=== PATIENT | female | born 1945 ===

== ENCOUNTER → 2021-01-06 10:02 | Outpatient (CLI) | payer MEDICARE, BC, SELFPAY ==
[2021-01-06 12:07] LABS: COVID19 -Nasal RAPID Negative (Negative)
== END ==
PROVIDERS: PCP Family Medicine; Visit Provider Physician Assistant
DX: Z20.822 Contact with and (suspected) exposure to COVID-19 (principal); Z01.812 Encounter for preprocedural laboratory examination
CPT/HCPCS: 87635

== ENCOUNTER 2021-01-07 05:59 | Inpatient (IN) | payer MEDICARE, BC, SELFPAY ==
[2020-12-31 09:46] VITALS: BMI 28.3
[2021-01-07] VITALS (16 sets, daily range): BP systolic 101–153; BP diastolic 45–83; PULSE 45–69; RESP 16–20; TEMP 35.8–36.6; O2SAT 90–100; BMI 27.1
[2021-01-07] MEDS: LACTATED RINGERS 1,000 ML 42 ML IV ×2 (07:25→09:33)
[2021-01-07] MEDS: VANCOMYCIN 1,000 MG/200 ML PIGGYBACK 200 MG IV ×2 (07:44→19:07)
--- NOTE | 2021-01-07 07:55 | SUR.PREOP ---
Block start time [0742] . 0744 time out performed. Monitoring initiated and maintained throughout procedure. Oxygen and medications given per anesthesiologist. Patient remained stable throughout procedure, no adverse reactions noted. Block end time [0751. Pt left for OR with DAYLIN Flanagan instable condition.].
[2021-01-07] MEDS: GENTAMICIN 290 MG in SODIUM CHLORIDE 0.9% 100 ML 107.25 ML IV (08:09)
--- NOTE | 2021-01-07 08:31 | SUR.OPER ---
Beach chair with Maquet shoulder positioner. Lower body on padded OR bed. Head in foam padded head cradle, secured with straps. Non-operative arm secured <90 degrees abduction. Pillow under knees. Safety belt at thigh. Cloth tape over blanket over lower legs.
[2021-01-07] MEDS: LIDOCAINE 1% W/EPI 20 ML INJ (08:37)
--- NOTE | 2021-01-07 08:48 | PM.PROC.1 ---
Procedures Date/Time Date of procedure: 01/07/21 Time of procedure: 07:40 General Procedure description: Ultrasound guided interscalene brachial plexus nerve block for post op pain control after left total shoulder arthroplasty by Dr. Tanner. Risk and benefits of procedure discussed with patient. ASA monitoring applied to patient. O2 given via nasal cannula. 2 mg Versed and 50 mcg fentanyl given for procedural sedation. Skin site was prepped with chlorhexidine and allowed to fully dry. Sterile gloves, mask, hat and probe cover were used to maintain sterility. 2% lidocaine and 30ga needle was used to make a small skin wheal at needle insertion site. Under ultrasound guidance, a 21ga 50mm Pajunk needle was directed into the interscalene groove (middle/anterior scalenes) near the brachial plexus. Patient reported no parasthesias. After negative aspiration, 20 mL 0.5% ropivicaine and 10mg dexamethasone were injected around brachial plexus. Patient tolerated procedure well.
--- NOTE | 2021-01-07 10:22 | PM.PREOP ---
Pre-operative Note COVID-19 COVID-19 status: Negative Interval Note History & Physical reviewed/Exam performed by Physician: Yes Changes to H&P: No
--- NOTE | 2021-01-07 10:30 | DI.RAD.S_ITS ---
PROCEDURE: XR SHOULDER LT MIN 2V INDICATIONS: Status post total shoulder arthroplasty TECHNIQUE: 2 is views of the shoulder were acquired. COMPARISON: None. FINDINGS: Bones: Expected postoperative alignment of left shoulder arthroplasty . Hardware appears intact. No acute fracture. IMPRESSION: Expected alignment. Dictated by: Marito Gray M.D. on 01/07/2021 at 11:49 Approved by: Marito Gray M.D. on 01/07/2021 at 11:50
--- NOTE | 2021-01-07 10:31 | PM.OP.1 ---
Operative Date/Time/Diagnoses Date of procedure: 01/07/21 Time of procedure: 08:00 Pre-op diagnosis: Left glenohumeral joint arthritis Post-op diagnosis: same Procedure & Clinicians Procedure: Left total shoulder arthroplasty Same procedure as scheduled: Yes Indications: Left glenohumeral joint arthritis Surgeon: Aly Tanner Mechanical Lead: Chadwick Spencer Anesthesia Type: General and Peripheral nerve block Operative Notes Findings: End-stage arthritic changes to the glenohumeral joint. No sign of any rotator cuff tears. No sign of any high-riding humeral head. Multiple osteophytes to the anterior-inferior aspect of the humeral head and neck. Some loose bodies in the glenohumeral joint. No significant flattening of the humeral head. No significant deformity or excessive wear to the glenoid. Closure Type: primary Specimen(s): none sent Applied: implant(s) (Medium glenoid 6 mm humeral stem, 50 x 19 humeral head) Estimated Blood Loss (mL): 100 Blood products transfused: none Procedure in detail: On date of service, Patient was met in the holding area. The operative site was signed and witnessed by the OR staff. The surgeries once again discussed with the patient and any remaining questions they had were answered fully. Patient was taken back to the operating theater and placed on the operating table in a supine position. Great care was taken to ensure that all bony prominences were properly padded. Patient was then placed into the beach chair position. The head and neck were properly positioned and secured. A timeout was performed verifying patient's name, procedure, and the operative site. The upper extremity was then prepped and draped in the normal sterile fashion. Previously, the bony anatomy and incision were marked out as well as injected with Marcaine with epinephrine. A deltopectoral approach was performed. 10 blade was used to incise the skin and fascial tissue. A deep knife was used to continue sharp dissection until the cephalic vein was visualized. The cephalic vein was dissected free allowing us to expose the deltopectoral interval. This interval was then developed. A Valle elevator was used to free up the deltoid of any scarring both superficially as well as deeply. The vein and the deltoid were taken laterally while the pectoralis was taken medially. This gave us good visualization of the strap muscles. The clavipectoral fascia was removed and the strap muscles were then retracted medially with the pectoralis. This gave us stabilization of the subscapularis. The circumflex vessels were ligated and the subscapularis was sharply excised off the lesser tuberosity and then tagged. Once the subscapularis was released we're able to dislocate the shoulder. Patient had end-stage arthritic changes to the humeral head as well as the glenoid with large osteophytes anterior inferiorly as well as posteriorly. A Ronger was then used to remove the osteophytes. Next, cutting guide was placed and a saw was used to remove the humeral head. Once the head was removed it was templated. A starting awl was then used to find the canal and then the humerus was reamed and broached. Trial stem was placed and a variety of heads were trialed. A protector placed for the osteotomy was then placed and and we turned our attention back to the subscapularis as well as the glenoid. The subscapularis was freed up and a 360? fashion. The degenerative anterior and inferior capsular tissue was removed. This was followed by removing the degenerative labral tissue from around the glenoid as well as the biceps insertion. This gave us good visualization of the glenoid. Glenoid trials were used until we found the appropriate fit and curvature. Next the center hole was drilled followed by reaming of the glenoid. The wound was copiously irrigated after reaming. Next the pegs were drilled and a trial glenoid was impacted into place. Once we were satisfied with the preparation of the glenoid, the final component was cemented into place. This was followed by impaction. We Return to our attention back to the humerus. The protector plate was removed and heads were trialed once again and so we found the appropriate fit. The trials were removed and bone tunnels were made into the humeral neck. #2 FiberWire were passed through the bone tunnels for eventual subscapularis repair. The final stem and head were impacted into place and the shoulder was reduced. It was taken through range of motion and was felt to be stable in both posterior translation as well as external and internal rotation with abduction. The subscapularis was repaired back to the lesser tuberosity through the bone tunnels. This was then reinforced with soft tissue repair. Part of the rotator interval was then closed. A drain was placed and the rest of the wound was closed in a layered fashion. The shoulder was then cleaned dried and dressed and the patient was taken to the PACU in stable condition. Patient will follow our postoperative protocol for total shoulder arthroplasty. Complications: none Post-operative Condition: stable Disposition: Acute Care Plan for aftercare: Patient will follow our postoperative protocol for total shoulder arthroplasty
[2021-01-07] MEDS: LACTATED RINGERS 1,000 ML 125 ML IV ×2 (11:48→22:02)
[2021-01-07] MEDS: BENZOCAINE/MENTHOL 1 LOZ PKT 1 EACH PO (13:14)
--- NOTE | 2021-01-07 15:30 | PT.IIE ---
Current Diagnoses Primary osteoarthritis, left shoulder (01/07/21) Impingement syndrome of unspecified shoulder (01/07/21) Surgery Performed Operation Date: 01/07/21 07:45 Actual Procedures p Total Shoulder Arthroplasty(Left) - Aly Tanner MD Surgical History (Last Updated 12/31/20 @ 10:15 by Gaby Campbell RN) History of hysterectomy History of surgery (2005) History of total right hip arthroplasty (07/2005) Hx of foot surgery (~1999) Hx of repair of left rotator cuff (2009) Hx of tonsillectomy Medical History (Last Updated 12/31/20 @ 10:15 by Gaby Campbell RN) C. difficile enteritis (05/2014) Depression Glaucoma History of revision of total replacement of right hip joint (2014) HLD (hyperlipidemia) HTN (hypertension) Lactose intolerance Osteoarthritis Uterine cancer (~1977) Physical Therapy Inpatient Evaluation/Re-Eval M1 PT/OT-IP Prior Functional Status Start: 01/07/21 16:35 Freq: NEEDED Status: Active Protocol: Document 01/07/21 15:30 AB (Rec: 01/07/21 16:52 AB [id number]) Medical Review Prior Functional Status Medical History Reviewed Yes Communication able to make needs known Mobility and Gait pt stated that she is independent with all mobilities and ambualtion without AD Social History Household Members spouse Living Arrangements House Number of Floors (Floors) One Floor Number of Stairs To Enter/Railing? 3 steps R rail ascending Home Environment High Toilet,Walk in Shower Home Equipment Straight Cane,Shower Seat with Backrest,Hand Held Shower, Grab Bars Near Toilet,Grab Bars In Shower Additional Social History Comment pt's son who lives ~ 10 min away from pt will be assisting pt most of the time and spouse will assist as needed pt has an adjustable bed and usually has HOB up ~ 20 deg M2 PT-IP Current Condition Start: 01/07/21 16:35 Freq: NEEDED Status: Active Protocol: Document 01/07/21 15:30 AB (Rec: 01/07/21 16:52 AB [id number]) Physical Therapy Current Condition Current Condition Evaluation Date 01/07/21 Treatment Diagnosis s/p L TSA; difficulty in walking Onset Date 01/07/21 Precautions Shoulder Precautions Sling,PROM,Internal Rotation to Body,No External Rotation, No Abduction,Forward Flexion to 90 degrees,Pendulums Weight Bearing Status Weight Bearing Status Non-Weight Bearing Allowed Weight Bearing Amount (enter % LUE NWB or #) (%) M3 PT-IP Subjective Start: 01/07/21 16:35 Freq: NEEDED Status: Active Protocol: Document 01/07/21 15:30 AB (Rec: 01/07/21 16:52 AB [email or web address]) Subjective Physical Therapy Visit Type Type Initial Evaluation Visit Start Time 15:30 Visit Stop Time 16:25 Total Visit Minutes [address] GUARD Visits 0 Physical Therapy Visit Comments Patient Comments agreeable to do PT; son in room with pt Therapy Pain Assessment Pain Present Pain Present Denied Pain M4 PT-IP Mobility and Gait Start: 01/07/21 16:35 Freq: NEEDED Status: Active Protocol: Document 01/07/21 15:30 AB (Rec: 01/07/21 16:52 AB [email or web address]) PT-Bed Mobility Assessment Supine to Sit Supine to Sit Standby Assistance,Head of Bed Elevated Sit to Supine Sit to Supine Standby Assistance,Head of Bed Elevated PT-Transfer Assessment Sit to and From Stand Sit to and from Stand Minimal Assistance,1 Person Assistance,Use of Upper Extremities Equipment Transfer Assistive Device None,Gait Belt Orthotic/Prosthetic Devices or Brace: Yes Transfers Transfer Destination Toilet Transfer Technique ambulated without AD Transfer Ability Level of Assist Minimal Assistance,1 Person Assistance,Use of Upper Extremities Comments Mobility Comments educated pt and son regarding shoulder precautions. pt completed supine to sit HOB elevated SBA. pt was able to sit on EOB SBA. pt can be impulsive and tends to move/ shrug shoulder. assisted pt with sling adjustment. educated on elbow/wrist/hand exercises. caregiver training conducted with son for sling management. son was able to edil sling on pt after education provided. pt completed sit to stand min A and ambulated in room ~ 10 ft min A without AD. presents with unsteady antalgic gait. pt ambulated back to bed but requested to use the toilet. ambulated to the toilet without AD min A and cues. able to maintain standing CGA while managing brief. ambulated back to bed CGA to min A and cues. completed sit to supine SBA. positioned pt in bed. call light and table placed within reach. Gait Assessment Gait Gait Assistance Required: Contact Guard Assist,Minimum Assistance,1 Person Assist Distance (Feet) 10 Able to Maintain Weight Bearing Status Yes During Gait Assistive Devices Assistive Device None,Gait Belt Orthotic/Prosthetic Devices or Brace: Yes Gait Deviations General Gait Pattern Antalgic,Decreased Stride Length,Decreased Feet Clearance,Step-to Gait Factors Limiting Gait Function Factors Limiting Gait Function Decreased Activity Tolerance, Decreased Sensation,Decreased Strength,Limited Range of Motion,Poor Balance,Poor Safety Awareness PT-Balance Assessment Sitting Balance and Reactions Static Sitting Balance Ability Good Dynamic Sitting Balance Ability Good Standing Balance and Reactions Static Standing Balance Ability Fair Dynamic Standing Balance Ability Fair Device Used without AD M5 PT-IP Objective Assessments Start: 01/07/21 16:35 Freq: NEEDED Status: Active Protocol: Document 01/07/21 15:30 AB (Rec: 01/07/21 16:52 AB [email or web address]) Orientation Orientation/Cognition Level of Alertness Alert Orientation Name,Place,Situation Language Function Ability No Deficits Noted Safety Awareness Decreased Safety Awareness Memory Description No Deficits Noted Gross Range of Motion Lower Extremity ROM Assessment Within Functional Limits Strength Lower Extremity Strength Hip 3+/5 Knee 4-/5 Sensation Assessment Sensation Gross Sensation Left UE Impaired Light Touch Impaired Proprioception (Position) Impaired Sensation Description Numbness Comments Sensation Comments numbness on LUE and does not have any motor control Muscle Tone Muscle Tone WNL No Muscle Tone Location Left Upper Extremity Type of Tone Hypotonicity Severity of Tone Severe M6 PT-IP Treatment Start: 01/07/21 16:35 Freq: NEEDED Status: Active Protocol: Document 01/07/21 15:30 AB (Rec: 01/07/21 16:52 AB [email or web address]) Physical Therapy Treatment Education Education Provided Precautions,Weight Bearing Status,Post-Op Packet,Safety Brace Education [place],Caregiver Other Treatments Other Treatment Performed caregiver training conducted for sling management M7 PT-IP Assessment and Plan Start: 01/07/21 16:35 Freq: NEEDED Status: Active Protocol: Document 01/07/21 15:30 AB (Rec: 01/07/21 16:52 AB [email or web address]) PT Summary Assessment and Plan Potential Rehabilitation Potential Good Status of Condition at Evaluation Evolving Summary Impairments Pain,ROM,Strength,Balance, Coordination,Sensation,Tone, Cognition,Bed Mobility, Transfers,Gait,Activity Tolerance Assessment Summary pt s/p L TSA POD 0. pt still have LUE numbness and has no motor control. pt requiring min A for ambulation without AD. stated that she feels stiff. will assess mobility again tomorrow and if needed, will conduct ambulation training using SPC for steadiness and safety. caregiver training conducted with son for sling management, LUE exercises/ precautions. further caregiver training set up for tomorrow at 9 am. will continue to assess. Goals Bed Mobility Goal Standby Assistance Transfer Goal Standby Assistance Gait Goal Standby Assistance Gait Distance 200 Other Goals up/down 3 steps R rail SBA Days to Meet Goals 3 Frequency of Treatment Frequency Of Treatment Twice a Day Treatment Plan Physical Therapy Treatment Plan Bed Mobility Training,Transfer Training,Gait Training, Therapeutic Exercise,Balance Retraining,Post Op Education, Discharge Planning,Hot or Cold Pack,Neuromuscular Re-ed, Coordination Retraining,Manual Therapy Precautions Shoulder Precautions Sling,PROM,Internal Rotation to Body,No External Rotation, No Abduction,Forward Flexion to 90 degrees,Pendulums Recommendations To Nursing Amount of Assist Needed 1 Person Assist Discharge Recommendations PT Discharge Recommendations Home with Assistance, Outpatient PT Transportation Needs at Discharge Private Vehicle
[2021-01-07] MEDS: LATANOPROST 0.005% OPHTH 2.5 ML 1 DROPS EYE-BOTH (20:41)
[2021-01-07] MEDS: DOCUSATE 100 MG CAPSULE PO (20:44)
[2021-01-07] MEDS: MAGNESIUM HYDROXIDE 30 ML UDC PO (20:44)
[2021-01-07] MEDS: CITALOPRAM 10 MG TABLET 20 MG PO (20:44)
[2021-01-07] MEDS: MELATONIN 3 MG TABLET 9 MG PO (23:48)
[2021-01-07] MEDS: ACETAMINOPHEN 325 MG TABLET 975 MG PO (23:49)
[2021-01-08] VITALS: BP 145/76; PULSE 73; RESP 18; TEMP 36.3; O2SAT 99
[2021-01-08] MEDS: HYDROCODONE/ACET 5/325 TABLET 2 TAB PO (04:18)
[2021-01-08 04:42] VITALS: BP 153/56; PULSE 70; RESP 16; TEMP 36.7; O2SAT 99
[2021-01-08] MEDS: HYDROMORPHONE 0.5 MG INJ 0.2 MG IV ×2 (06:46→11:26)
[2021-01-08 07:18] LABS: Hematocrit 36.6 % (36-46); Hemoglobin 11.9 g/dL (12.0-16.0); Mean Corpuscular HGB Conc 32.4 % (30-36); Mean Corpuscular Hemoglobin 29.5 PG (26-34); Platelet Count 184 X10^3/uL (150-400); Red Blood Cell Count 4.02 X10^6/uL (4.0-5.2); Red Cell Distribution Width 13.4 % (11.6-14.8); White Blood Cell Count 12.3 X10^3/uL (4.5-11.0)
--- NOTE | 2021-01-08 07:29 | PM.PNPO.1 ---
Subjective Subjective Date Patient Seen: 01/08/21 Time Patient Seen: 07:29 Interval history: Patient states she is doing well overall and is in mild discomfort at rest. At this time the patient denies fever, chills, nausea, chest pain, shortness of breath, or urinary retention. Patient notes that she did not get great sleep last night due to her pain. She explains however that she is looking forward to working with physical therapy and ultimately being discharged home. Exam Vital Signs (past 8 hours): - 01/08/21 00:00 01/08/21 04:42 Temperature 97.3 F L 98.0 F Pulse Rate 73 70 Respiratory Rate 18 16 Blood Pressure 145/76 H 153/56 H Pulse Oximetry 99 99 Oxygen Delivery Method Room Air Oxygen Flow Rate 0 Narrative Exam Narrative: Pleasant 75-year-old female postop day 1 status post left total shoulder arthroplasty. Patient is resting comfortably in bed, is in no acute distress, is alert and oriented x3. Skin is warm and dry, skin surrounding the incision site is free of erythema, warmth, induration, or discharge. Good sensation appreciated throughout the bilateral upper extremities to light touch. Bandage over the incision site is clean, dry, and intact. No strike through appreciated on the bandage. Capillary refill less than 2 seconds, palpable pulses appreciated. No other signs of DVT appreciated. Const General: cooperative, healthy appearing and comfortable Resp Effort & Inspection: normal respiratory effort and able to speak in complete sentences Skin General: no rashes or lesions noted Objective Labs Result Diagrams: 01/08/21 06:50 Labs: Laboratory Results - last 24 hr 01/08/21 06:50 WBC 12.3 H RBC 4.02 Hgb 11.9 L Hct 36.6 MCV 91.0 MCH 29.5 MCHC 32.4 RDW 13.4 Plt Count 184 PFSH Medical History C. difficile enteritis (05/2014) Depression Glaucoma History of revision of total replacement of right hip joint (2014) HLD (hyperlipidemia) HTN (hypertension) Lactose intolerance Osteoarthritis Uterine cancer (~1977) Surgical History History of hysterectomy History of surgery (2005) History of total right hip arthroplasty (07/2005) Hx of foot surgery (~1999) Hx of repair of left rotator cuff (2009) Hx of tonsillectomy Social History household members: spouse Smoking Status: Former smoker alcohol intake: current Assessment & Plan Post-op Postoperative Procedures: Procedures Operation Date: 01/07/21 07:45 Actual Procedures Side Surgeon p Total Shoulder Arthroplasty Left Aly Tanner MD Postoperative day: 1 Postoperative status: doing well Postoperative plan narrative: Patient is to continue working with physical therapy on stabilization. Her current pain management regimen is to be continued as it is adequately controlled the pain level at this time. Patient is to remain in her sling. Pending successful work with PT patient is likely to be discharged home today. Time Spent With Patient Time with patient: less than 15 minutes Quality VTE Deep Vein Thrombosis/Pulmonary Embolism Present on Admission: No
[2021-01-08 07:36] VITALS: BP 155/78; PULSE 63; RESP 15; TEMP 36.2; O2SAT 98
--- NOTE | 2021-01-08 08:09 | PM.DS.1 ---
History of Present Illness History of Present Illness Date Patient Seen: 01/08/21 Time Patient Seen: 08:09 Chief complaint: *OPB*Left Total Shoulder Arthroplasty Narrative: Refer to previous HPI. Discharge Providers Provider Date of admission: 01/07/21 05:59 Discharge Date: 01/08/21 Primary care physician: Patricia Puckett DO Consults: 01/07/21 07:32 Consult to Anesthesiology Routine Comment: Consulting Provider: Anesthesiologist Reason for consultation: Post operative pain managment 01/07/21 10:28 Consult to Discharge Planning Routine Comment: Consult to Physical Therapy Evaluate & Treat Comment: Physician Instructions: Evaluate and Treat Consult to Respiratory Therapy Evaluate & Treat Comment: Physician Instructions: Evaluate and treat Discharge provider: Hernesto Levine PA-C Summary Hospital Course Discharge Diagnosis: Left glenohumeral joint arthritis Status post left total shoulder arthroplasty Hospital Course: Patient was admitted to the hospital following the above-listed procedure for the above-listed diagnosis. Following the procedure the patient has been convalescing appropriately and her pain is managed with current pain management regimen. Patient is successfully worked with physical therapy throughout her stay in the hospital. Patient has denied fever, chills, nausea, chest pain, shortness of breath, or urinary retention throughout her stay. Following the procedure the patient has remained in her sling over the left upper extremity. Aquacel dressing has remained intact following surgery. Status at Discharge Cognitive/behavioral status at discharge: oriented Functional status at discharge: independent ambulation Overall status at discharge: patient is progressing back to baseline Exam Vital Signs (past 8 hours): - 01/08/21 04:42 Temperature 98.0 F Pulse Rate 70 Respiratory Rate 16 Blood Pressure 153/56 H Pulse Oximetry 99 Oxygen Delivery Method Room Air Oxygen Flow Rate 0 Narrative Exam Narrative: Pleasant 75-year-old female postop day 1 status post left total shoulder arthroplasty. Patient is resting comfortably in bed, is in no acute distress, is alert and oriented x3. Skin is warm and dry, skin surrounding the incision site is free of erythema, warmth, induration, or discharge. Good sensation appreciated throughout the bilateral upper extremities to light touch. Bandage over the incision site is clean, dry, and intact. No strike through appreciated on the bandage. Capillary refill less than 2 seconds, palpable pulses appreciated. No other signs of DVT appreciated. Const General: cooperative, healthy appearing and comfortable Resp Effort & Inspection: normal respiratory effort and able to speak in complete sentences Skin General: no rashes or lesions noted Objective Labs Result Diagrams: 01/08/21 06:50 Labs: Laboratory Results - last 24 hr 01/08/21 06:50 WBC 12.3 H RBC 4.02 Hgb 11.9 L Hct 36.6 MCV 91.0 MCH 29.5 MCHC 32.4 RDW 13.4 Plt Count 184 PFSH Medical History C. difficile enteritis (05/2014) Depression Glaucoma History of revision of total replacement of right hip joint (2014) HLD (hyperlipidemia) HTN (hypertension) Lactose intolerance Osteoarthritis Uterine cancer (~1977) Surgical History History of hysterectomy History of surgery (2005) History of total right hip arthroplasty (07/2005) Hx of foot surgery (~1999) Hx of repair of left rotator cuff (2009) Hx of tonsillectomy Social History household members: spouse Smoking Status: Former smoker alcohol intake: current Discharge Assessment & Plan Assessment and Plan Assessment: Patient is doing well. Plan of Treatment: Patient is to continue outpatient physical therapy following discharge from the hospital. First postoperative visit is scheduled in clinic 2 weeks following discharge from hospital. Current pain management regimen is to be continued as it is adequately controlled the patient's pain level at this time. Patient is to remain in her sling at all times and to avoid lifting with the left upper extremity. Patient is to contact the clinic with any concerns or questions. Any signs of increased redness, swelling, warmth, pain, or discharge from around the incision site should be reported to the clinic. Aquacel dressing over the incision site should remain intact for 2 weeks. Contact the clinic if the dressing is to become damaged or soiled. Discharge Plan Discharge Plan Patient Disposition: Home Provider Discharge Comment: Patient cleared for discharge pending PT clearance. Discharge orders & Medications Prescriptions: New acetaminophen 325 mg Tablet 975 mg PO TID PRN (Reason: Headache) Qty: 90 RF: 0 oxycodone 10 mg Tablet 10 mg PO Q3HR PRN (Reason: Pain, Severe (7-10)) Qty: 42 RF: 0 Continued atorvastatin 10 mg Tablet 10 mg PO DAILY RF: 0 acetaminophen 500 mg Tablet 1,500 mg PO BEDTIME RF: 0 citalopram 20 mg Tablet 20 mg PO QPM RF: 0 metoprolol succinate 25 mg Tablet Extended Release 24 Hr 25 mg PO DAILY RF: 0 loratadine 10 mg Tablet 10 mg PO DAILY RF: 0 bupropion HCl 150 mg Tablet Extended Release 24 Hr 150 mg PO QAM RF: 0 melatonin 10 mg Tablet 10 mg PO BEDTIME RF: 0 latanoprost (PF) 0.005 % Drops 1 drp EYE-BOTH QPM RF: 0 Follow up/Referrals: Patricia uPckett DO [Primary Care Provider] - Diet/Activity/Treatments Diet: Diet as Tolerated Activity: Pendulum exercises as directed by Physical therapy. Skin/Wound/Dressing Care Report to your healthcare provider any signs of infection, such as:: chills, fever, night sweats, increased pain, unusual drainage and unusual redness Dressing: Aquacel dressing over the incision site should remain intact for 2 weeks. Contact the clinic if the dressing becomes damaged or soiled. Other wound treatment: Avoid placing topical ointments over the incision site. Avoid soaking the incision site. Visit Report/Discharge Packet Instructions: DI for Heart Failure, DI for Prescription Opioid Use, DI for Shoulder Replacement Stand Alone Forms: Surgery Discharge Discharge Data Primary Care Provider: Patricia Puckett Quality VTE Deep Vein Thrombosis/Pulmonary Embolism Present on Admission: No
[2021-01-08] MEDS: ATORVASTATIN 20 MG TABLET 10 MG PO (08:35)
[2021-01-08] MEDS: DOCUSATE 100 MG CAPSULE PO (08:36)
[2021-01-08] MEDS: buPROPion XL 150 MG TAB PO (08:36)
[2021-01-08 08:37] VITALS: BP 102/61; PULSE 48
[2021-01-08] MEDS: LORATADINE 10 MG TABLET PO (08:37)
[2021-01-08] MEDS: OXYCODONE IR 10 MG TABLET PO ×2 (08:38→13:51)
--- NOTE | 2021-01-08 08:55 | PT.IPTN ---
Current Diagnoses Primary osteoarthritis, left shoulder (01/07/21) Surgery Performed Operation Date: 01/07/21 07:45 Actual Procedures p Total Shoulder Arthroplasty(Left) - Aly Tanner MD Physical Therapy Treatment Note M2 PT-IP Current Condition Start: 01/07/21 16:35 Freq: NEEDED Status: Active Protocol: Document 01/07/21 15:30 AB (Rec: 01/07/21 16:52 AB [email or web address]) Physical Therapy Current Condition Current Condition Evaluation Date 01/07/21 Treatment Diagnosis s/p L TSA; difficulty in walking Onset Date 01/07/21 Precautions Shoulder Precautions Sling,PROM,Internal Rotation to Body,No External Rotation, No Abduction,Forward Flexion to 90 degrees,Pendulums Weight Bearing Status Weight Bearing Status Non-Weight Bearing Allowed Weight Bearing Amount (enter % LUE NWB or #) (%) M3 PT-IP Subjective Start: 01/07/21 16:35 Freq: NEEDED Status: Active Protocol: Document 01/08/21 08:55 AB (Rec: 01/08/21 13:00 AB [email or web address]) Subjective Physical Therapy Visit Type Type Treatment Note Visit Start Time 08:55 Visit Stop Time 09:25 Total Visit Minutes 30 Number of WEB OPERATIONS MANAGER Visits 0 Physical Therapy Visit Comments Patient Comments pt is agreeable to do PT Therapy Pain Assessment Pain When Pain Assessed At Rest Pain Present Pain Present Pain Reported Location l shoulder Scale Used pain scale not stated Pain Management Techniques Modification of Treatment,Re- positioning,Timing of Activity with Medications M4 PT-IP Mobility and Gait Start: 01/07/21 16:35 Freq: NEEDED Status: Active Protocol: Document 01/08/21 08:55 AB (Rec: 01/08/21 13:00 AB [email or web address]) PT-Bed Mobility Assessment Supine to Sit Supine to Sit Standby Assistance,1 Person Assistance,Head of Bed Elevated Sit to Supine Sit to Supine Standby Assistance,Head of Bed Elevated Scooting Scooting to Edge of Bed Standby Assistance PT-Transfer Assessment Sit to and From Stand Sit to and from Stand Minimal Assistance,1 Person Assistance,Use of Upper Extremities Equipment Transfer Assistive Device None,Gait Belt Orthotic/Prosthetic Devices or Brace: Yes Transfers Transfer Destination Bed,Chair Transfer Technique Stand Step Pivot Transfer Ability Level of Assist Minimal Assistance,1 Person Assistance,Use of Upper Extremities Comments Mobility Comments son in room for caregiver training. reviewed shoulder precautions with pt. pt completed supine to sit SBA with HOB elevated. pt has an adjustable bed at home. pt sat on EOB. c/o slight lightheadedness. completed sit to stand min A and transferred to chair min A and cues step pivot without AD. BP checked: 155/78. pt stated that she cannot do anymore and wants to go back to bed. stated that she felt weak all of a sudden and does not think she can move anymore. assisted pt back to bed min A. bed mobility SBA. positioned in bed. call light and table placed within reach . caregiver training not conducted as pt did not tolerate much activity. M5 PT-IP Objective Assessments Start: 01/07/21 16:35 Freq: NEEDED Status: Active Protocol: Document 01/07/21 15:30 AB (Rec: 01/07/21 16:52 [facility] Orientation Orientation/Cognition Level of Alertness Alert Orientation Name,Place,Situation Language Function Ability No Deficits Noted Safety Awareness Decreased Safety Awareness Memory Description No Deficits Noted Gross Range of Motion Lower Extremity ROM Assessment Within Functional Limits Strength Lower Extremity Strength Hip 3+/5 Knee 4-/5 Sensation Assessment Sensation Gross Sensation Left UE Impaired Light Touch Impaired Proprioception (Position) Impaired Sensation Description Numbness Comments Sensation Comments numbness on LUE and does not have any motor control Muscle Tone Muscle Tone WNL No Muscle Tone Location Left Upper Extremity Type of Tone Hypotonicity Severity of Tone Severe M6 PT-IP Treatment Start: 01/07/21 16:35 Freq: NEEDED Status: Active Protocol: Document 01/08/21 08:55 AB (Rec: 01/08/21 13:00 [facility] Physical Therapy Treatment Education Education Provided Precautions,Safety M7 PT-IP Assessment and Plan Start: 01/07/21 16:35 Freq: NEEDED Status: Active Protocol: Document 01/08/21 08:55 AB (Rec: 01/08/21 13:00 [facility] PT Summary Assessment and Plan Potential Rehabilitation Potential Good Summary Impairments Pain,ROM,Strength,Balance, Coordination,Sensation,Tone, Cognition,Bed Mobility, Transfers,Gait,Activity Tolerance Progress Towards Goals Slow Progress due to Activity Tolerance Assessment Summary caregiver training scheduled for this morning but was not completed as pt was not able to tolerate much activity. will attempt again in the afternoon session. will continue to assess mobility for safe d/c plan. Goals Bed Mobility Goal Standby Assistance Transfer Goal Standby Assistance Gait Goal Standby Assistance Gait Distance 200 Other Goals up/down 3 steps R rail SBA Days to Meet Goals 3 Frequency of Treatment Frequency Of Treatment Twice a Day Treatment Plan Physical Therapy Treatment Plan Bed Mobility Training,Transfer Training,Gait Training, Therapeutic Exercise,Balance Retraining,Post Op Education, Discharge Planning,Hot or Cold Pack,Neuromuscular Re-ed, Coordination Retraining,Manual Therapy Other Recommendations and Next Treatment caregiver training 130 pm 01/08 Focus Precautions Shoulder Precautions Sling,PROM,Internal Rotation to Body,No External Rotation, No Abduction,Forward Flexion to 90 degrees,Pendulums Recommendations To Nursing Amount of Assist Needed 1 Person Assist Discharge Recommendations PT Discharge Recommendations Home with Assistance, Outpatient PT Transportation Needs at Discharge Private Vehicle
--- NOTE | 2021-01-08 09:16 | PC.NURSE ---
Addendum entered by Soumya Parrish R.N. 01/08/21 11:17: Patient up to restroom, voiding, reports flatus, no BM at this time. Denies dizziness or lightheadedness. Patient back to bed, positioned to right side for comfort, hemovac intact, compressed. Call light in reach. Warm blanket provided. Original Note: Patient became dizzy during morning medication pass. Hypotensive, awilda in the 40's. Patient repositioned to supine, reports nausea. MD aware. LR restarted. Held Metoprolol. Pulses equal bilaterally, patient reports pain 7/10 with movement in LUE, dsg intact, quarter size shadow drainage noted, hemovac compressed, sling intact. Patient returned to baseline VS after 30 minutes. Up to work with PT, c/o feeling weak and unable to complete session. Patient denies N/V, chest pain, lightheadedness. VS stable. Patient's son, Jim, remains bedside. Patient denies further needs at this time, would like to rest. Call light in reach.
[2021-01-08 11:20] VITALS: BP 170/76; PULSE 61; RESP 17; TEMP 36.6; O2SAT 99
--- NOTE | 2021-01-08 13:45 | PT.IPTN ---
Current Diagnoses Primary osteoarthritis, left shoulder (01/07/21) Surgery Performed Operation Date: 01/07/21 07:45 Actual Procedures p Total Shoulder Arthroplasty(Left) - Aly Tanner MD Physical Therapy Treatment Note M2 PT-IP Current Condition Start: 01/07/21 16:35 Freq: NEEDED Status: Active Protocol: Document 01/07/21 15:30 AB (Rec: 01/07/21 16:52 AB [email or web address]) Physical Therapy Current Condition Current Condition Evaluation Date 01/07/21 Treatment Diagnosis s/p L TSA; difficulty in walking Onset Date 01/07/21 Precautions Shoulder Precautions Sling,PROM,Internal Rotation to Body,No External Rotation, No Abduction,Forward Flexion to 90 degrees,Pendulums Weight Bearing Status Weight Bearing Status Non-Weight Bearing Allowed Weight Bearing Amount (enter % LUE NWB or #) (%) M3 PT-IP Subjective Start: 01/07/21 16:35 Freq: NEEDED Status: Active Protocol: Document 01/08/21 13:45 AB (Rec: 01/08/21 16:34 AB [email or web address]) Subjective Physical Therapy Visit Type Type Treatment Note Visit Start Time 13:45 Visit Stop Time 14:55 Total Visit Minutes 70 Number of LAWN MOWER SHARPENER Visits 0 Physical Therapy Visit Comments Patient Comments pt is agreeable to do PT; son in room with pt Therapy Pain Assessment Pain When Pain Assessed At Rest Pain Present Pain Present Pain Reported Location l shoulder Scale Used Numeric (0 - 10) Pain Management Techniques Distraction,Modification of Treatment,Re-positioning, Timing of Activity with Medications M4 PT-IP Mobility and Gait Start: 01/07/21 16:35 Freq: NEEDED Status: Active Protocol: Document 01/08/21 13:45 AB (Rec: 01/08/21 16:34 AB [email or web address]) PT-Transfer Assessment Sit to and From Stand Sit to and from Stand Contact Guard Assistance,1 Person Assistance,Use of Upper Extremities Equipment Transfer Assistive Device Gait Belt,Straight Cane Orthotic/Prosthetic Devices or Brace: No Transfer Ability Level of Assist Contact Guard Assistance, Minimal Assistance,1 Person Assistance,Use of Upper Extremities Comments Mobility Comments pt sitting on chair. son in room. reviewed precautions with pt. assisted with sling management. pt completed elbow/wrist/hand exercises. instructed pt to walk to the counter and completed min A without AD. pt is unsteady and has an antalgic gai. educated on pendulum exercise and pt attempted pendulum but pt with increase LUE guarding and unable to complete but was able to assume position. Son was able to put sling on pt. educated pt regarding safety and unsteadiness with ambulation without AD. educated on SPC use. completed ambulation using SPC CGA to min A and cues. pt sat down. educated pt's son on how to use safety belt and how to assist pt. pt's son was able to put safety belt on and assisted pt with ambulation ~ 100 ft using SPC. educated on stair climbing and son on how to assist pt. pt completed up/down steps using R rail ascending and R rail descending with son assisiting CGA to min A. pt stated that he can go into the house from the front with R rail up and go out through the garage with R rail descending . assisted pt back to her room. ambulated w/c to chair using SPC CGA and cues and son assisted. positioned pt on chair. call light and table placed within reach. Gait Assessment Gait Gait Assistance Required: Contact Guard Assist,Minimum Assistance,1 Person Assist Distance (Feet) 100 Able to Maintain Weight Bearing Status Yes During Gait Assistive Devices Assistive Device Gait Belt,Straight Cane Orthotic/Prosthetic Devices or Brace: Yes Gait Deviations General Gait Pattern Antalgic,Decreased Stride Length,Decreased Feet Clearance,Step-to Gait Factors Limiting Gait Function Factors Limiting Gait Function Decreased Activity Tolerance, Decreased Strength,Limited Range of Motion,Pain,Poor Balance,Poor Safety Awareness Stair Climbing Assessment Evaluation Level of Assist On Stairs Contact Guard Assistance, Minimal Assistance Devices Stair Climbing Assistive Devices Left Railing,Right Railing Technique/Endurance Stair Climbing Direction Ascend and Descend Stair Climbing Technique Step to Step Number of Steps Climbed 3 Stair Climbing Set # Repetitions (reps) 1 Comments Stair Climbing Comments pls refer to mobility section for details M5 PT-IP Objective Assessments Start: 01/07/21 16:35 Freq: NEEDED Status: Active Protocol: Document 01/07/21 15:30 AB (Rec: 01/07/21 16:52 AB [id number]) Orientation Orientation/Cognition Level of Alertness Alert Orientation Name,Place,Situation Language Function Ability No Deficits Noted Safety Awareness Decreased Safety Awareness Memory Description No Deficits Noted Gross Range of Motion Lower Extremity ROM Assessment Within Functional Limits Strength Lower Extremity Strength Hip 3+/5 Knee 4-/5 Sensation Assessment Sensation Gross Sensation Left UE Impaired Light Touch Impaired Proprioception (Position) Impaired Sensation Description Numbness Comments Sensation Comments numbness on LUE and does not have any motor control Muscle Tone Muscle Tone WNL No Muscle Tone Location Left Upper Extremity Type of Tone Hypotonicity Severity of Tone Severe M6 PT-IP Treatment Start: 01/07/21 16:35 Freq: NEEDED Status: Active Protocol: Document 01/08/21 13:45 AB (Rec: 01/08/21 16:34 AB [email or web address]) Physical Therapy Treatment Education Education Provided Precautions,Safety Brace Education Donning,[place],Caregiver M7 PT-IP Assessment and Plan Start: 01/07/21 16:35 Freq: NEEDED Status: Active Protocol: Document 01/08/21 13:45 AB (Rec: 01/08/21 16:34 AB [email or web address]) PT Summary Assessment and Plan Potential Rehabilitation Potential Good Summary Impairments Pain,ROM,Strength,Balance, Coordination,Sensation,Tone, Cognition,Bed Mobility, Transfers,Gait,Activity Tolerance Progress Towards Goals Slow Progress due to Pain,Slow Progress due to Activity Tolerance Assessment Summary caregiver training conducted and son is able to assist pt safely. informed pt and son that pt needs assistance whenever she gets up for safety. Both understood. pt plans to go home later today. Goals Bed Mobility Goal Standby Assistance Transfer Goal Standby Assistance Gait Goal Standby Assistance Gait Distance 200 Other Goals up/down 3 steps R rail SBA Days to Meet Goals 3 Frequency of Treatment Frequency Of Treatment Twice a Day Treatment Plan Physical Therapy Treatment Plan Bed Mobility Training,Transfer Training,Gait Training, Therapeutic Exercise,Balance Retraining,Post Op Education, Discharge Planning,Hot or Cold Pack,Neuromuscular Re-ed, Coordination Retraining,Manual Therapy Precautions Shoulder Precautions Sling,PROM,Internal Rotation to Body,No External Rotation, No Abduction,Forward Flexion to 90 degrees,Pendulums Recommendations To Nursing Amount of Assist Needed 1 Person Assist Discharge Recommendations PT Discharge Recommendations Home with Assistance, Outpatient PT Transportation Needs at Discharge Private Vehicle
--- NOTE | 2021-01-08 13:57 | CM.DANOTE ---
Addendum entered by Esha Mcmahon LPN 01/08/21 14:10: Met now with pt and her son Jim, both is in process of PT session with [facility]. Pt says that Ortho PA [place] told her this morining that she would be able to d/c once cleared by PT. If not cleared, pt is to stay on until tomorrow. Will check in again tomorrow if pt is still here. Pt lives with her Viviana and Jim will be staying to assist her once she goes home. No d/c concerns are noted at this time. Original Note: Discharge Planning/Care Management DCP: assessment: case received, EMR reviewed and discussed in Team Rounds. Pt is a 75 year old female who admitted 01/07 for a scheduled TSA L Admission status: INPT: confirmed by ELEANOR RN Payer: Medicare and Federal Son Jim will be part of caregiver training. OUTPT PT is planned. Will check in with pt now. Advanced directive, confirm from FAMILY Start: 01/07/21 11:57 Freq: Q24H Status: Active Protocol: Document 01/07/21 12:06 KAMary (Rec: 01/07/21 12:06 KAB [id number]) Advance Directive, confirm on record Time 12:06 Person contacted pt Copy received No Document 01/08/21 12:16 NICOLASA (Rec: 01/08/21 12:16 NICOLASA [id number]) Advance Directive, confirm on record Time 12:06 Person contacted pt Copy received No Time 12:16 Person contacted Patient Copy received No Advanced directive available on record No CM Discharge Assessment Start: 01/08/21 13:56 Freq: Status: Active Protocol: Document 01/08/21 13:56 ITV (Rec: 01/08/21 13:57 ITV [id number]) Discharge Planning Assessment Advance Directives? Yes Advance Directives on File No History Provided By Medical Record Prior Living Arrangements House Household Members spouse Pre-Anesthesia Assessment Start: 12/31/20 09:46 Freq: Status: Complete Protocol: Document 12/31/20 09:46 CAB (Rec: 12/31/20 10:36 CAB [id number]) Pre-Anesthesia Assessment Patient Information Reviewed Via Phone Assessment Assessment Completed With Patient Diagnostic Results BMP/CMP,CBC Comment Outside labs scanned, no EKG identified, COVID screen @ 01/06/21 Primary Care Provider Patricia Puckett Seen Specialist in Last 12 Months Yes Specialist Seen Orthopedist Primary Language Surinamese Frame Table Operator Required No Height 165.1 cm Weight 77.111 kg Body Mass Index (BMI) 28.3 Hearing Ability Normal Visual Assist Glasses Dentition Type Partial- Lower,Full- Upper Barriers to Learning None Hx Anesthesia Reactions No Hx Family Anesthesia Reaction No Hx Malignant Hyperthermia No Hx Blood Transfusions No Anesthesia Review Requested No alcohol intake current alcohol intake frequency a few times a week Smoking Status Former smoker Tobacco type cigarettes,cannabis/marijuana how long ago did patient quit smoking Quit 08/1999 Substance Use Type marijuana Comment Vapes Marijuana-advised not to smoke 24 hours prior to surgery Pain Present Pain Reported Musculoskeletal Symptoms Abnormal Gait,Back Pain, Difficulty Walking,Joint Pain, Limited Range of Motion History of Falling (Recent or History of Yes ) Comment Back discomfort r/t recent fall, improving Patient is completely paralyzed or No completely immobile Mental Status Oriented to own ability Is patient on oxygen? No Does patient have HUBBARD/SOB No Hx Sleep Apnea No Currently Taking a Beta Les Yes: Metoprolol Can You Climb a Flight of Stairs Without Yes SOB Hx Chest Pain No Hx SOB No Hx Syncope or Dizziness No Anti-Coagulant Therapy No Has a Sliver Lapper No Cardiac Testing No Hx Pacemaker/ICD No Pacemaker Rep Required? No Cardiac Clearance Received Not Applicable Diet Type At Home Regular dysphagia No Gastrointestinal Symptoms Constipation Bladder Pattern Nocturia Urinary Catheter Present No Hx Urinary Self Catheterization No Diabetes No Patient No Lactating No Hx Drug Resistant Organism Yes: C-diff Presence of External or Internal Medical Yes: Right hip Devices Have you had any close contact with No someone diagnosed with COVID-19? Marital Status Lives With spouse Prior Living Arrangements House Number of Floors (Floors) One Floor Support System Child/Children,Spouse Does the Patient Have Assistance After Yes: Son will also assist w/ Surgery care @ [facility] Patient Discharge Plan Description Return Home Comment Pt advised overnight length of stay per surgeon Feels Safe in Current Environment Yes Been Physically Hurt or Threatened By a No Person in Current Environment Do you have thoughts of harming yourself None or others? Are you currently considering suicide? No Do you have a plan to hurt yourself or No Plan others? Do You Have Any Spiritual Beliefs That No May Affect Your HC Choices? Do You Have Any Cultural Practices That No May Affect Your HC Choices? Who Can We Speak to About Patient's Care Family, friends Identifying Code for Release of Patient Declines to issue Information Health Care Proxy/Next of Kin Viviana () Jim (son) Health Care Proxy Phone Number Viviana: [phone] or [phone] Jim: [phone] Emergency Contact Name Viviana () Jim (son) Emergency Contact Phone Number Viviana: [phone] or [phone] Jim: [phone] Advance Directives? Yes Power of Slate Worker Name Viviana () Jim (son) Power of Slate Worker Phone Number Viviana: [phone] or Jim: [phone] PAC Instructions Durable medical equipment, Medications to take/avoid,No ETOH/petroleum product on skin DOS,NPO,Post-op transportation,Pre-surgical wash,Sturdy shoes/comfortable clothes,Do not bring valuables and remove jewelry Comment Nasal abx not ordered by surgeon
--- NOTE | 2021-01-08 19:44 | PC.NURSE ---
Evening Shift Note- Patient arrivated to room via stretcher from ER at 1825. Slider board used to transfer to bed. Admit questions done. Medications reviewed, physical assessment done, and skin check completed. Oreinted patient to bed and bed controls, room,lights, phone, .menu, and call fenton/tv remote. Tele Monitor placed as ordered. Safety measures in place. Bed alarm activated. call fenton and phone within reach. will continue to monitor.
--- NOTE | 2021-01-08 19:53 | PC.NURSE ---
Evening Shift/Discharge Note- Patient discharged home per Md. Discharged instructuions and education reviewed with patient and signed. IV line removed and bandaid applied. Hemavac removed and bandage applied.Patient assisted with changing clothes. Son helped pack up personal belonging. Patient left via wheelchair to private car with all personal belongings at 1620.
== END 2021-01-08 16:20 | disposition home or self-care (01) | DRG 483 ==
LOC: OR 06:05 → AC 14:12 → OR 16:32 → AC 16:32
PROVIDERS: Admitting Provider Orthopaedic Surgery; PCP Family Medicine; Referring Provider Orthopaedic Surgery; Visit Provider Orthopaedic Surgery
PROC: 0RRK0JZ Replacement of Left Shoulder Joint with Synthetic Substitute, Open Approach (ICD-10-PCS; CPT 23472; principal; 2021-01-07 07:45)
DX: M19.012 Primary osteoarthritis, left shoulder (principal); Z87.891 Personal history of nicotine dependence; I10 Essential (primary) hypertension; E78.5 Hyperlipidemia, unspecified; Z20.822 Contact with and (suspected) exposure to COVID-19
CPT/HCPCS: 36415; 64450; 73030; 85027; 87635; 94762; 97162; 97530; C1776; C9803; J1100; J1170; J2250; J2704; J3010